=== PATIENT | female | born 2000 | race Native Hawaiian/Other Pacific Islander ===

== ENCOUNTER 2019-03-18 14:14 | Emergency (ER) | payer OTHER ==
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
[2019-03-18] MEDS ORDERED: IBUPROFEN PO ONE (16:56)
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
[2019-03-18 18:46] VITALS: BP 106/55
== END 2019-03-18 19:23 | disposition home or self-care (01) ==
LOC: ED 14:14
DX: S39.012A Strain of muscle, fascia and tendon of lower back, initial encounter (principal); M25.512 Pain in left shoulder; V49.59XA Passenger injured in collision with other motor vehicles in traffic accident, initial encounter; Y93.89 Activity, other specified; Y92.410 Unspecified street and highway as the place of occurrence of the external cause; Y99.8 Other external cause status
CPT/HCPCS: 72100